=== PATIENT | male | born 1975 | race Caucasian/White ===

== ENCOUNTER → 2017-03-01 | Outpatient (CLI) | payer OTHER ==
[2017-03-01 18:48] LABS: Basophils % (A) 1 %; CH 31.8; CHCM 35.6; Eosinophils # (A) 0.4 k/uL (0-0.7); Eosinophils % (A) 7 %; HCT 46.3 % (39.0-53.0); HDW 2.77; HGB 16.2 gm/dL (13.0-17.5); Luc # (Auto) 0.14; Luc % (Auto) 3; Lymphocytes # (A) 1.5 k/uL (1.0-4.8); Lymphocytes % (A) 29 %; MCH 31.4 pg (25.0-35.0); MCV 89.6 fL (80.0-100.0); Mean Platelet Volume 8.2; Monocytes # (A) 0.4 k/uL (0-1.0); Monocytes % (A) 7 %; Neutrophils # (A) 2.9 k/uL (1.3-7.7); Neutrophils % (A) 54 %; RBC 5.17 m/uL (4.30-5.90); WBC 5.3 k/uL (3.8-10.6); WBC (Perox) 4.96
[2017-03-01 18:56] LABS: ALT 73 U/L (21-72); AST 45 U/L (17-59); Alkaline Phosphatase 47 U/L (38-126); Anion Gap 13 mmol/L; Blood Urea Nitrogen 18 mg/dL (9-20); Calcium 9.6 mg/dL (8.4-10.2); Carbon Dioxide 25 mmol/L (22-30); Chloride 106 mmol/L (98-107); Cholesterol 179 mg/dL (<200); Glucose 102 mg/dL (74-99); HDL Cholesterol 52 mg/dL (40-60); Non-African American GFR(MDRD) >60 (>60 ml/min/1.73 sqM); Potassium 4.5 mmol/L (3.5-5.1); Sodium 144 mmol/L (137-145); Total Bilirubin 0.9 mg/dL (0.2-1.3); Total Protein 7.7 g/dL (6.3-8.2); Triglycerides 211 mg/dL (<150)
[2017-03-01 19:28] LABS: Vitamin B12 370 pg/mL (239-931)
[2017-03-01 23:45] LABS: Hemoglobin A1C 4.8 % (4.2-6.1)
== END | disposition home or self-care (01) ==
LOC: MMGSC 11:29
PROVIDERS: ATTEND Family Medicine
DX: R63.1 Polydipsia (principal); R53.83 Other fatigue
CPT/HCPCS: 36415; 80053; 80061; 82306; 82607; 83036; 84439; 84443; 85025

== ENCOUNTER → 2017-12-08 | Outpatient (CLI) | payer OTHER ==
[2017-12-08 18:35] LABS: Basophils % (A) 1 %; Eosinophils # (A) 0.4 k/uL (0-0.7); Eosinophils % (A) 5 %; HCT 45.6 % (39.0-53.0); HGB 15.7 gm/dL (13.0-17.5); Lymphocytes # (A) 2.5 k/uL (1.0-4.8); Lymphocytes % (A) 34 %; MCH 30.2 pg (25.0-35.0); MCHC 34.3 g/dL (31.0-37.0); MCV 87.9 fL (80.0-100.0); Mean Platelet Volume 7.5; Monocytes # (A) 0.5 k/uL (0-1.0); Monocytes % (A) 6 %; Neutrophils # (A) 3.8 k/uL (1.3-7.7); Neutrophils % (A) 52 %; Platelet Count 215 k/uL (150-450); RBC 5.19 m/uL (4.30-5.90); WBC 7.4 k/uL (3.8-10.6)
[2017-12-08 18:57] LABS: ALT 84 U/L (21-72); AST 51 U/L (17-59); Albumin 4.5 g/dL (3.5-5.0); Alkaline Phosphatase 48 U/L (38-126); Anion Gap 12 mmol/L; Blood Urea Nitrogen 22 mg/dL (9-20); Calcium 9.7 mg/dL (8.4-10.2); Carbon Dioxide 26 mmol/L (22-30); Chloride 103 mmol/L (98-107); Cholesterol 186 mg/dL (<200); Glucose 84 mg/dL (74-99); HDL Cholesterol 49 mg/dL (40-60); LDL Cholesterol,Calculated 100 mg/dL (0-99); Potassium 4.3 mmol/L (3.5-5.1); Sodium 141 mmol/L (137-145); Total Bilirubin 0.7 mg/dL (0.2-1.3); Total Protein 7.7 g/dL (6.3-8.2); Triglycerides 183 mg/dL (<150)
[2017-12-08 19:05] LABS: T4, Free (Free Thyroxine) 1.08 ng/dL (0.78-2.19)
== END | disposition home or self-care (01) ==
LOC: MMGSC 16:52
PROVIDERS: ATTEND Family Medicine
DX: R63.5 Abnormal weight gain (principal); R53.83 Other fatigue; R94.5 Abnormal results of liver function studies; Z86.79 Personal history of other diseases of the circulatory system
CPT/HCPCS: 36415; 80053; 80061; 82306; 84439; 84443; 85025

== ENCOUNTER 2021-02-25 10:00 | Day surgery (SDC) | payer MEDICAID ==
[2021-02-23 14:29] VITALS: BMI 34.8
[~2021-02-25 10:00] MED LIST: LACTATED RINGERS 1,000 ML IV SCH
[2021-02-25 10:20] VITALS: RESP 16; TEMP 98.3
[2021-02-25] MEDS ORDERED: LIDOCAINE 1% (10MG/ML) FOR IV START INTRADERMA ONE (10:23)
[2021-02-25] MEDS ORDERED: PROPOFOL 10 MG/ML 20 ML VIAL IV ONE (10:56)
--- NOTE | 2021-02-25 11:09 | P.PCN ---
Date of Procedure: 02/25/21 Procedure(s) Performed: BRIEF HISTORY: Patient is a 45-year-old pleasant white male scheduled for an elective colonoscopy as a part of screening for colorectal neoplasia. He does have family history of colon polyps diagnosed in her mother. PROCEDURE PERFORMED: Colonoscopy. PREOPERATIVE DIAGNOSIS: Screening for colon cancer/family history of colon polyps. IV sedation per Anesthesia. PROCEDURE: After informed consent was obtained, the patient, was brought into the endoscopy unit. IV sedation was administered by Anesthesia under continuous monitoring. Digital rectal examination was normal. Initially the Olympus CF-160 flexible video colonoscope was then inserted in the rectum, gradually advanced into the cecum without any difficulty. Careful examination was performed as the scope was gradually being withdrawn. Ileocecal valve and the appendiceal orifice were visualized and appeared normal. Prep was excellent. Mucosa of the cecum, ascending colon, transverse colon, descending colon, sigmoid colon, and rectum appeared normal. Retroflexion was performed in the rectum and no lesions were seen. The patient tolerated the procedure well. IMPRESSION: Normal-appearing colon from rectum to cecum with no evidence of colorectal neoplasia. RECOMMENDATIONS: Findings of this examination were discussed with the patient as well as his family. He was advised to have a repeat screening colonoscopy at age 50..
[2021-02-25 11:18] VITALS: PULSE 62
[2021-02-25 11:29] VITALS: BP 111/74
== END 2021-02-25 12:07 | disposition home or self-care (01) ==
LOC: ORWHC2ENDO 10:00
PROVIDERS: ATTEND Internal Medicine Gastroenterology
DX: Z12.11 Encounter for screening for malignant neoplasm of colon (principal); Z83.71 Family history of colonic polyps; Z86.16 Personal history of COVID-19; K21.9 Gastro-esophageal reflux disease without esophagitis; Z79.899 Other long term (current) drug therapy
CPT/HCPCS: J2704; G0105

== ENCOUNTER → 2021-08-12 | Outpatient (CLI) | payer MEDICAID ==
--- NOTE | 2021-08-12 15:22 | CT ---
EXAMINATION TYPE: CT angio chest DATE OF EXAM: 08/12/2021 COMPARISON: None HISTORY: SOB x2 months CT DLP: 628 mGycm CONTRAST: CT chest with contrast and 3D reconstruction with MIP imaging is performed with IV Contrast, patient injected with 100 mL of Isovue 370. Contrast-enhanced CT of the chest was performed through the course of the pulmonary arteries with dee g and mediastinal window settings submitted. 3D reconstruction with MIP imaging was also performed. PULMONARY ARTERIES: The pulmonary arteries and their major tributaries are patent. I do not see brian dence for sizable filling defect to suggest pulmonary embolic process. LUNGS: Mild increased groundglass density at the lung bases may reflect inflammatory process. No evid ence for atelectasis. No pulmonary nodule or mass is detected. No pleural effusion. MEDIASTINUM: Thoracic aorta is of normal caliber,however, evaluation is limited given timing of the contrast bolus. If there is concern for thoracic aortic pathology consider FAISAL. Correlate clinicall y . The heart is not enlarged. No evidence for mediastinal mass. No mediastinal lymph nodes greater than 1cm. HILAR STRUCTURES: No evidence for mass. No hilar lymph nodes greater than 1 cm. UPPER ABDOMEN: No significant abnormality is seen. IMPRESSION: 1. No evidence for Pulmonary embolism at this time. 2.Mild increased groundglass density at the lung bases may reflect inflammatory process.
[2021-08-12 16:56] LABS: Basophils % (A) 0 %; Eosinophils # (A) 0.2 k/uL (0-0.7); Eosinophils % (A) 2 %; HCT 45.2 % (39.0-53.0); HGB 15.6 gm/dL (13.0-17.5); Lymphocytes # (A) 1.5 k/uL (1.0-4.8); Lymphocytes % (A) 11 %; MCH 31.2 pg (25.0-35.0); MCHC 34.6 g/dL (31.0-37.0); MCV 90.1 fL (80.0-100.0); Mean Platelet Volume 7.8; Monocytes # (A) 0.5 k/uL (0-1.0); Monocytes % (A) 4 %; Neutrophils # (A) 10.7 k/uL (1.3-7.7); Neutrophils % (A) 82 %; Platelet Count 193 k/uL (150-450); RBC 5.01 m/uL (4.30-5.90); RDW 13.4 % (11.5-15.5); WBC 13.1 k/uL (3.8-10.6)
[2021-08-12 17:16] LABS: ALT 42 U/L (4-49); AST 36 U/L (17-59); African American GFR (CKD) >90 (>60 ml/min/1.73 sqM); Albumin 4.4 g/dL (3.5-5.0); Alkaline Phosphatase 59 U/L (38-126); Anion Gap 10 mmol/L; Blood Urea Nitrogen 18 mg/dL (9-20); C Reactive Protein 2.1 mg/dL (<1.0); Calcium 9.5 mg/dL (8.4-10.2); Carbon Dioxide 23 mmol/L (22-30); Chloride 102 mmol/L (98-107); Creatine Kinase 281 U/L (55-170); Glucose 135 mg/dL (74-99); LDH 402 U/L (313-618); Non-African American GFR(CKD) >90 (>60 ml/min/1.73 sqM); Potassium 3.9 mmol/L (3.5-5.1); Sodium 135 mmol/L (137-145); Total Bilirubin 0.9 mg/dL (0.2-1.3); Total Protein 7.8 g/dL (6.3-8.2)
[2021-08-12 17:55] LABS: Erythrocyte Sedimentation Rate 3 mm/hr (0-15)
[2021-08-13 06:47] LABS: Rheumatoid Factor, Qnt <10 IU/mL (0-15)
[2021-08-13 14:46] LABS: C-ANCA <1:20 Titer (<1:20)
== END | disposition home or self-care (01) ==
LOC: RADCTMAIN 14:38
PROVIDERS: ATTEND Internal Medicine
DX: R06.02 Shortness of breath (principal); R91.8 Other nonspecific abnormal finding of lung field
CPT/HCPCS: 86255; 80053; 86001; 85652; 82550; 83615; 85025; 86140; 86431; 86609; 86606; 86038; 71275; Q9967

== ENCOUNTER 2021-10-16 12:54 | Emergency (ER) | payer MEDICAID ==
[2021-10-16] MEDS: KETOROLAC 15 MG/ML 1 ML VIAL IVP STA (13:22)
[2021-10-16] MEDS: ACETAMINOPHEN TAB 500 MG TAB PO STA (13:22)
[2021-10-16] MEDS: SODIUM CHLORIDE 0.9% 2,000 ML IV STA (13:23)
[2021-10-16] MEDS: ONDANSETRON 4 MG/2 ML VIAL IVP STA (13:25)
[2021-10-16 13:38] LABS: Basophils % (A) 0 %; Eosinophils % (A) 0 %; HCT 46.5 % (39.0-53.0); HGB 16.3 gm/dL (13.0-17.5); Lymphocytes # (A) 0.8 k/uL (1.0-4.8); Lymphocytes % (A) 4 %; MCH 31.5 pg (25.0-35.0); MCHC 35.1 g/dL (31.0-37.0); MCV 89.9 fL (80.0-100.0); Mean Platelet Volume 7.8; Monocytes # (A) 0.9 k/uL (0-1.0); Monocytes % (A) 4 %; Neutrophils # (A) 20.1 k/uL (1.3-7.7); Neutrophils % (A) 91 %; Platelet Count 188 k/uL (150-450); RBC 5.17 m/uL (4.30-5.90); RDW 12.7 % (11.5-15.5); WBC 22.1 k/uL (3.8-10.6)
[2021-10-16 13:44] LABS: Appearance,Urine Clear (Clear); Bilirubin,Urine Negative (Negative); Blood,Urine Negative (Negative); Color,Urine Yellow; Glucose,Urine (UA) Negative (Negative); Ketones,Urine 1+ (Negative); Leukocyte Esterase,Urine Negative (Negative); Nitrite,Urine Negative (Negative); PH, Urine 6.5 (5.0-8.0); Protein,Urine Trace (Negative); Specific Gravity,Urine 1.022 (1.001-1.035); Urobilinogen,Urine <2.0 mg/dL (<2.0)
--- NOTE | 2021-10-16 13:50 | CT ---
EXAMINATION TYPE: CT abdomen pelvis w con DATE OF EXAM: 10/16/2021 COMPARISON: CTA chest 2 months ago. HISTORY: Right lower quadrant abdominal pain. CT DLP: 2099.4 mGycm, Automated Exposure Control for Dose Reduction was Utilized. CONTRAST: CT scan of the abdomen and pelvis is performed without oral but with IV Contrast, patient injected wi th 100ml mL of Isovue 300. FINDINGS: LUNG BASES: Patchy groundglass opacities seen [id number] linear atelectasis redemonstrated brigido lar to August 12, 2021 CT. Correlate clinically for edema and/or infiltrates. LIVER/GB: Liver is heterogeneously hypodense consistent with diffuse fatty infiltration and/or underl nelida hepatocellular disease. PANCREAS: No significant abnormality is seen. SPLEEN: No significant abnormality is seen. ADRENALS: No significant abnormality is seen. KIDNEYS: No significant abnormality is seen. BOWEL: Focal moderate wall thickening near hepatic flexure with moderate severe ill-defined fluid and fat stranding and few colonic diverticula axial image 44 consistent with acute diverticulitis right midabdomen. No free air. No well-formed fluid collection or drainable abscess. Additional scattered c olonic diverticula. Normal appendix in the right lower quadrant axial image 70. PROSTATE/SEMINAL VESICLES: No gross abnormality seen. LYMPH NODES: No greater than 1cm abdominal or pelvic lymph nodes are appreciated. OSSEOUS STRUCTURES: No significant abnormality is seen. OTHER: No significant additional abnormality is seen. IMPRESSION: CT findings consistent with moderate to severe uncomplicated acute right-sided diverticul itis as detailed above.
[2021-10-16 13:55] LABS: ALT 30 U/L (4-49); AST 30 U/L (17-59); African American GFR (CKD) >90 (>60 ml/min/1.73 sqM); Albumin 4.6 g/dL (3.5-5.0); Alkaline Phosphatase 65 U/L (38-126); Amylase 60 U/L (30-110); Anion Gap 13 mmol/L; Blood Urea Nitrogen 17 mg/dL (9-20); Calcium 9.5 mg/dL (8.4-10.2); Carbon Dioxide 19 mmol/L (22-30); Chloride 102 mmol/L (98-107); Glucose 128 mg/dL (74-99); Lipase 50 U/L (23-300); Non-African American GFR(CKD) 86 (>60 ml/min/1.73 sqM); Potassium 4.2 mmol/L (3.5-5.1); Sodium 134 mmol/L (137-145); Total Bilirubin 1.8 mg/dL (0.2-1.3); Total Protein 8.3 g/dL (6.3-8.2)
[2021-10-16 14:09] VITALS: RESP 18
[2021-10-16] MEDS: PIPERACILLIN-TAZOBACTAM 3.375 GM in SODIUM CHLORIDE 0.9% 100 ML IVPB STA (14:12)
--- NOTE | 2021-10-16 14:14 | ED ---
Abdominal Pain HPI - General Chief Complaint: Abdominal Pain Stated Complaint: abd pain Time Seen by Provider: 10/16/21 13:01 Source: patient, RN notes reviewed Mode of arrival: ambulatory Limitations: no limitations - History of Present Illness Initial Comments: This a 45-year-old male presents emergency Department chief complaint of abdominal pain, fever. Patient's started yesterday progressively worsen. Patient states started and some periumbilical region has transient his right- sided abdomen. Patient had nausea without vomiting patient states is not taking any recent for his fever. Patient's pain is better at rest worse with movement. Patient had no prior abdominal surgeries. No cold-like symptoms no dysuria no hematuria no diarrhea no constipation - Related Data Home Medications Medication Instructions Recorded Confirmed Cetirizine HCl [Zyrtec] 10 mg PO DAILY PRN 02/23/21 10/16/21 Omeprazole [PriLOSEC] 20 mg PO DAILY PRN 02/23/21 10/16/21 Ascorbic Acid [Vitamin C] 1,000 mg PO DAILY 10/16/21 10/16/21 Cholecalciferol [Vitamin D3 (125 125 mcg PO DAILY 10/16/21 10/16/21 Mcg = 5000 Iu)] Fish Oil/Dha/Epa [Fish Oil 1,200 1 cap PO DAILY 10/16/21 10/16/21 mg Fish Oil] Ibuprofen [Motrin Ib] 800 mg PO Q8H PRN 10/16/21 10/16/21 Magnesium 250 mg PO DAILY 10/16/21 10/16/21 Multivitamins, Thera [Multivitamin 1 tab PO DAILY 10/16/21 10/16/21 (formulary)] Selenium 100 mcg PO DAILY 10/16/21 10/16/21 Zinc 50 mg PO DAILY 10/16/21 10/16/21 Previous Rx's Medication Instructions Recorded Ciprofloxacin HCl [Cipro] 500 mg PO Q12HR #20 tablet 10/16/21 Ibuprofen [Motrin] 600 mg PO Q8HR PRN #20 tab 10/16/21 metroNIDAZOLE [Flagyl] 500 mg PO TID #30 tab 10/16/21 Allergies Allergy/AdvReac Type Severity Reaction Status Date / Time No Known Allergies Allergy Verified 10/16/21 13:50 Review of Systems ROS Statement: Those systems with pertinent positive or pertinent negative responses have been documented in the HPI. ROS Other: All systems not noted in ROS Statement are negative. Past Medical History Past Medical History: GERD/Reflux Additional Past Medical History / Comment(s): Hx covid January 2020,testing covid positive Oct 2020 History of Any Multi-Drug Resistant Organisms: None Reported Past Surgical History: Ear Surgery Additional Past Surgical History / Comment(s): tubes rusty ears x2, reprositioning upper jaw,pain proc Past Anesthesia/Blood Transfusion Reactions: No Reported Reaction Past Psychological History: No Psychological Hx Reported Smoking Status: Never smoker Past Alcohol Use History: Rare Past Drug Use History: None Reported - Past Family History Mother Additional Family Medical History / Comment(s): precancerous polyps General Exam Limitations: no limitations General appearance: alert, in no apparent distress Head exam: Present: atraumatic, normocephalic, normal inspection Eye exam: Present: normal appearance, PERRL, EOMI. Absent: scleral icterus, conjunctival injection, periorbital swelling ENT exam: Present: normal exam, normal oropharynx, mucous membranes moist Neck exam: Present: normal inspection, full ROM. Absent: tenderness, meningismus, lymphadenopathy Respiratory exam: Present: normal lung sounds bilaterally. Absent: respiratory distress, wheezes, rales, rhonchi, stridor Cardiovascular Exam: Present: normal rhythm, tachycardia, normal heart sounds. Absent: systolic murmur, diastolic murmur, rubs, gallop, clicks GI/Abdominal exam: Present: soft, tenderness (Moderate right-sided), normal bowel sounds. Absent: distended, guarding, rebound, rigid Back exam: Absent: CVA tenderness (R), CVA tenderness (L) Course Vital Signs 10/16/21 10/16/21 12:55 14:06 Temperature 101.0 F H 98.6 F Pulse Rate 130 H 101 H Respiratory 20 18 Rate Blood Pressure 131/82 121/76 O2 Sat by Pulse 95 94 L Oximetry Medical Decision Making - Medical Decision Making CT shows evidence of diverticulitis without perforation or abscess formation. Patient does have mild leukocytosis patient was offered admission feels comfortable discharge clear liquid diet, oral antibiotics. Patient was given Zosyn prior discharge patient discharged with pain control, nausea and strict return parameters. - Lab Data Result diagrams: 10/16/21 13:18 10/16/21 13:18 Lab Results 10/16/21 10/16/21 10/16/21 Range/Units 13:18 13:18 13:18 WBC 22.1 H (3.8-10.6) k/uL RBC 5.17 (4.30-5.90) m/uL Hgb 16.3 (13.0-17.5) gm/dL Hct 46.5 (39.0-53.0) % MCV 89.9 (80.0-100.0) fL MCH 31.5 (25.0-35.0) pg MCHC 35.1 (31.0-37.0) g/dL RDW 12.7 (11.5-15.5) % Plt Count 188 (150-450) k/uL MPV 7.8 Neutrophils % 91 % Lymphocytes % 4 % Monocytes % 4 % Eosinophils % 0 % Basophils % 0 % Neutrophils # 20.1 H (1.3-7.7) k/uL Lymphocytes # 0.8 L (1.0-4.8) k/uL Monocytes # 0.9 (0-1.0) k/uL Eosinophils # 0.0 (0-0.7) k/uL Basophils # 0.0 (0-0.2) k/uL Sodium 134 L (137-145) mmol/L Potassium 4.2 (3.5-5.1) mmol/L Chloride 102 (98-107) mmol/L Carbon Dioxide 19 L (22-30) mmol/L Anion Gap 13 mmol/L BUN 17 (9-20) mg/dL Creatinine 1.05 (0.66-1.25) mg/dL Est GFR (CKD-EPI)AfAm >90 (>60 ml/min/1.73 sqM) Est GFR (CKD-EPI)NonAf 86 (>60 ml/min/1.73 sqM) Glucose 128 H (74-99) mg/dL Plasma Lactic Acid Sajan (0.7-2.0) mmol/L Calcium 9.5 (8.4-10.2) mg/dL Total Bilirubin 1.8 H (0.2-1.3) mg/dL AST 30 (17-59) U/L ALT 30 (4-49) U/L Alkaline Phosphatase 65 (38-126) U/L Total Protein 8.3 H (6.3-8.2) g/dL Albumin 4.6 (3.5-5.0) g/dL Amylase 60 (30-110) U/L Lipase 50 (23-300) U/L Urine Color Yellow Urine Appearance Clear (Clear) Urine pH 6.5 (5.0-8.0) Ur Specific [place] 1.022 (1.001-1.035) Urine Protein Trace H (Negative) Urine Glucose (UA) Negative (Negative) Urine Ketones 1+ H (Negative) Urine Blood Negative (Negative) Urine Nitrite Negative (Negative) Urine Bilirubin Negative (Negative) Urine Urobilinogen <2.0 (<2.0) mg/dL Ur Leukocyte Esterase Negative (Negative) Coronavirus (PCR) (Not Detectd) 10/16/21 10/16/21 Range/Units 13:18 13:18 WBC (3.8-10.6) k/uL RBC (4.30-5.90) m/uL Hgb (13.0-17.5) gm/dL Hct (39.0-53.0) % MCV (80.0-100.0) fL MCH (25.0-35.0) pg MCHC (31.0-37.0) g/dL RDW (11.5-15.5) % Plt Count (150-450) k/uL MPV Neutrophils % % Lymphocytes % % Monocytes % % Eosinophils % % Basophils % % Neutrophils # (1.3-7.7) k/uL Lymphocytes # (1.0-4.8) k/uL Monocytes # (0-1.0) k/uL Eosinophils # (0-0.7) k/uL Basophils # (0-0.2) k/uL Sodium (137-145) mmol/L Potassium (3.5-5.1) mmol/L Chloride (98-107) mmol/L Carbon Dioxide (22-30) mmol/L Anion Gap mmol/L BUN (9-20) mg/dL Creatinine (0.66-1.25) mg/dL Est GFR (CKD-EPI)AfAm (>60 ml/min/1.73 sqM) Est GFR (CKD-EPI)NonAf (>60 ml/min/1.73 sqM) Glucose (74-99) mg/dL Plasma Lactic Acid Sajan 1.1 (0.7-2.0) mmol/L Calcium (8.4-10.2) mg/dL Total Bilirubin (0.2-1.3) mg/dL AST (17-59) U/L ALT (4-49) U/L Alkaline Phosphatase (38-126) U/L Total Protein (6.3-8.2) g/dL Albumin (3.5-5.0) g/dL Amylase (30-110) U/L Lipase (23-300) U/L Urine Color Urine Appearance (Clear) Urine pH (5.0-8.0) Ur Specific [place] (1.001-1.035) Urine Protein (Negative) Urine Glucose (UA) (Negative) Urine Ketones (Negative) Urine Blood (Negative) Urine Nitrite (Negative) Urine Bilirubin (Negative) Urine Urobilinogen (<2.0) mg/dL Ur Leukocyte Esterase (Negative) Coronavirus (PCR) Not Detected (Not Detectd) Disposition Clinical Impression: Diverticulitis Disposition: HOME SELF-CARE Condition: Stable Instructions (If sedation given, give patient instructions): Diverticulitis Diet (ED), Diverticulitis (ED) Additional Instructions: Please return to the Emergency Department if symptoms worsen or any other concerns. Prescriptions: Ciprofloxacin HCl [Cipro] 500 mg PO Q12HR #20 tablet metroNIDAZOLE [Flagyl] 500 mg PO TID #30 tab Ibuprofen [Motrin] 600 mg PO Q8HR PRN #20 tab PRN Reason: Pain Is patient prescribed a controlled substance at d/c from ED?: No Referrals: Sara Barbosa MD [Primary Care Provider] - 1-2 days Time of Disposition: 14:13
[2021-10-16] MEDS: ACET/COD 300 MG/30 MG STARTER PACK 6 TAB BTL PO STA (14:45)
[2021-10-16 14:49] VITALS: BP 119/86; PULSE 99; TEMP 98.3
== END 2021-10-16 14:50 | disposition home or self-care (01) ==
LOC: EC 12:54
DX: K57.32 Diverticulitis of large intestine without perforation or abscess without bleeding (principal); D72.829 Elevated white blood cell count, unspecified; K21.9 Gastro-esophageal reflux disease without esophagitis; Z79.1 Long term (current) use of non-steroidal anti-inflammatories (NSAID); Z79.899 Other long term (current) drug therapy; Z20.822 Contact with and (suspected) exposure to COVID-19
CPT/HCPCS: 36415; 80053; 82150; 83605; 83690; 85025; 81003; 87040; 87635; 74177; 99284; 96365; 96375 ×2; 96361; J2543; J2405; J1885; Q9967

== ENCOUNTER → 2024-03-12 | Outpatient (CLI) | payer MEDICAID ==
--- NOTE | 2024-03-13 07:21 | XR ---
EXAMINATION TYPE: XR foot limited RT DATE OF EXAM: 03/12/2024 COMPARISON: None HISTORY: Pain right foot TECHNIQUE: 2 view right foot FINDINGS: No acute fracture or dislocation. Joint spaces are preserved. Soft tissues appear normal. Follow up exams can be performed 7-10 days for continued pain. IMPRESSION: 1. No acute osseous abnormality right foot
== END | disposition home or self-care (01) ==
LOC: RADXRMAIN 16:36
PROVIDERS: ATTEND Family Medicine
DX: M79.671 Pain in right foot (principal)